=== PATIENT | female | born 1950 | race African-American/Black ===

== ENCOUNTER → 2017-06-22 | Outpatient (CLI) | payer MEDICARE, OTHER ==
[2016-04-03 15:00] VITALS: BP 135/59
[~2017-06-22] MED LIST: ASPI-630 PO; BRIM5DRO2 OU; CHOL100014 PO; FERR325T58 PO; KETO5DRO EACHEYE; LISI1TAB5 PO; MULT-460 PO
--- NOTE | 2017-06-22 14:51 | RAD ---
DATE: 06/22/2017 EXAM: DIGITAL SCREEN BILAT W/CAD HISTORY: Screening study. COMPARISON: 06/20/2016 This study was interpreted with the benefit of Computerized Aided Detection (CAD). The breast parenchyma shows scattered fibroglandular densities. Breast parenchyma level B. FINDINGS: Digital MLO and CC mammograms of both breasts were obtained. Comparison study is dated 06/20/2016. The breast parenchyma is composed of scattered fibroglandular densities which can obscure a lesion on mammography (breast density code B). No spiculated mass is seen. No malignant appearing calcification or area of architectural distortion is noted. Since the previous examination there has been no significant interval change. IMPRESSION: BI-RADS Category 1, negative. There is no mammographic evidence of malignancy. Routine yearly screening mammography is recommended for follow-up. BI-RADS CATEGORY: 1 NEGATIVE RECOMMENDED FOLLOW-UP: 12M 12 MONTH FOLLOW-UP PQRS compliance statement: Patient information was entered into a reminder system with a target due date 06/22/2018 for the next mammogram. Mammography is a sensitive method for finding small breast cancers, but it does not detect them all and is not a substitute for careful clinical examination. A negative mammogram does not negate a clinically suspicious finding and should not result in delay in biopsying a clinically suspicious abnormality. "Our facility is accredited by the [employer] Mammography [employer]."
== END | disposition home or self-care (01) ==
LOC: MAMMO 10:04
PROVIDERS: ATTEND Family Medicine
DX: Z12.31 Encounter for screening mammogram for malignant neoplasm of breast (principal)
CPT/HCPCS: G0202; 77067

== ENCOUNTER → 2018-06-23 | Outpatient (CLI) | payer MEDICARE ==
[2016-04-03 15:00] VITALS: BP 135/59
--- NOTE | 2018-06-23 10:10 | RAD ---
DATE: 06/23/2018 EXAM: MAMMO SALMA SCREENING BILATERAL HISTORY: Routine screening COMPARISON: 06/22/2017 This study was interpreted with the benefit of Computerized Aided Detection (CAD). The breast parenchyma shows scattered fibroglandular densities. Breast parenchyma level B. FINDINGS: 2-D and 3-D tomosynthesis imaging was performed in CC and MLO projections. No new or enlarging breast densities are seen. No suspicious microcalcifications are evident. IMPRESSION: Stable mammograms without evidence of malignancy. BI-RADS CATEGORY: 1 NEGATIVE RECOMMENDED FOLLOW-UP: 12M 12 MONTH FOLLOW-UP PQRS compliance statement: Patient information was entered into a reminder system with a target due date for the next mammogram. Mammography is a sensitive method for finding small breast cancers, but it does not detect them all and is not a substitute for careful clinical examination. A negative mammogram does not negate a clinically suspicious finding and should not result in delay in biopsying a clinically suspicious abnormality. "Our facility is accredited by the [employer] Mammography [employer]."
== END | disposition home or self-care (01) ==
LOC: MAMMO 07:53
PROVIDERS: ATTEND Family Medicine
DX: Z12.31 Encounter for screening mammogram for malignant neoplasm of breast (principal); I10 Essential (primary) hypertension; M17.12 Unilateral primary osteoarthritis, left knee
CPT/HCPCS: 77063; 77067

== ENCOUNTER → 2019-06-07 | Outpatient (CLI) | payer MEDICARE ==
[2018-10-06 10:46] VITALS: BP 138/72
--- NOTE | 2019-06-07 14:53 | RAD ---
Left Knee: 06/07/2019 12:00 AM. Reason for study: Pain in the left knee. Comparison: Left knee radiograph January 15, 2016 Technique: 3 views of the left knee are obtained. Findings: There are findings consistent with recent left total knee arthroplasty, with hardware in good alignment and position. No complications are evident. No lucency is identified surrounding the hardware. No acute fracture or dislocation. There may be a small knee joint effusion. Impression: Left total knee arthroplasty without evidence for hardware failure. Small knee joint effusion. Electronically signed by: Ruth Wadsworth MD (06/07/2019 2:50 PM) [id number]
== END | disposition home or self-care (01) ==
LOC: RAD 08:44
PROVIDERS: ATTEND Physician Assistant
DX: M25.462 Effusion, left knee (principal); M54.16 Radiculopathy, lumbar region; Z96.652 Presence of left artificial knee joint
CPT/HCPCS: 73562

== ENCOUNTER → 2019-06-30 | Outpatient (CLI) | payer MEDICARE ==
[2018-10-06 10:46] VITALS: BP 138/72
[~2019-06-30] MED LIST changes: +LISI1TAB19 PO; -LISI1TAB5 PO
--- NOTE | 2019-06-30 17:53 | RAD ---
EXAM: CT left knee without contrast DATE: 06/30/2019 11:30 AM COMPARISON: No prior INDICATION: TECHNIQUE: CT of the left knee was performed without IV contrast. 2-D reformatted sagittal and coronal images were created at the CT console workstation. PQRS compliance statement - One or more of the following individualized dose reduction techniques were utilized for this study: 1. Automated exposure control 2. Adjustment of the mA and/or kV according to patient size 3. Use of iterative reconstruction technique FINDINGS: Changes of left total knee arthroplasty are seen. This results in extensive streak artifact despite metal reduction techniques, significant streak artifact limits evaluation. No evidence for acute fracture. Trace lucency is seen at the bone-cement interface at the medial tibial plateau measuring up to 1 mm, likely physiologic. Evaluation for lucency about the femoral component is limited given extensive artifact. The patellar component is well-seated. Moderate left knee joint effusion with synovial thickening, synovitis. Essentially neutral patellar tracking. A 3 mm calcification (series 11 image 16) anterior to the medial femoral tibial polyethylene component may represent joint body or focal heterotopic ossification of Hoffa's fat pad. In addition there is a 9 mm ossification (series 11 image 20) just inferior to the patellar button which may represent a prominent osteophyte or joint body. Mild soft tissue swelling is seen about the left knee. IMPRESSION: 1. Left total knee arthroplasty results in extensive streak artifact limiting evaluation. 2. 3 mm calcification is seen anterior to the medial femorotibial polyethylene component within or abutting the Hoffa's fat pad, possibly joint body or heterotopic ossification of Hoffa's fat pad. 3. A 9 mm calcification at the inferior margin of the patellar button may represent a joint body or prominent osteophyte arising from the inferior patella. 4. Left knee joint effusion with synovitis. Electronically signed by: Raymond Monge MD (06/30/2019 5:50 PM) [facility]
== END | disposition home or self-care (01) ==
LOC: CT 11:03
PROVIDERS: ATTEND Physician Assistant
DX: M25.462 Effusion, left knee (principal); M65.9 Synovitis and tenosynovitis, unspecified
CPT/HCPCS: 73700

== ENCOUNTER → 2019-06-30 | Outpatient (CLI) | payer MEDICARE ==
[2018-10-06 10:46] VITALS: BP 138/72
--- NOTE | 2019-07-01 14:11 | RAD ---
DATE: 06/30/2019 10:44 AM EXAM: MAMMO SALMA SCREENING BILATERAL HISTORY: routine screening evaluation. COMPARISON: 06/23/2018, 06/22/2017 Bilateral CC and MLO views of the breasts were performed. Bilateral breast tomosynthesis was performed in CC and MLO projections. This study was interpreted with the benefit of Computerized Aided Detection (CAD). FINDINGS: Breast Density: SCATTERED The breast parenchyma shows scattered fibroglandular densities. Breast parenchyma level B The parenchymal pattern appears stable. No suspicious masses, microcalcifications or architectural distortion is present to suggest malignancy in either breast. The visualized axillae are unremarkable. IMPRESSION: No mammographic evidence of malignancy. BI-RADS CATEGORY: 2 BENIGN FINDING(S) RECOMMENDED FOLLOW-UP: 12M 12 MONTH FOLLOW-UP Annual screening mammography is recommended, unless clinically indicated sooner based on symptoms or change in physical exam. PQRS compliance statement: Patient information was entered into a reminder system with a target due date for the next mammogram. Mammography is a sensitive method for finding small breast cancers, but it does not detect them all and is not a substitute for careful clinical examination. A negative mammogram does not negate a clinically suspicious finding and should not result in delay in biopsying a clinically suspicious abnormality. "Our facility is accredited by the [employer] Mammography [employer]."
== END | disposition home or self-care (01) ==
LOC: MAMMO 10:31
PROVIDERS: ATTEND Family Medicine
DX: Z12.31 Encounter for screening mammogram for malignant neoplasm of breast (principal); N64.89 Other specified disorders of breast
CPT/HCPCS: 77063; 77067

== ENCOUNTER → 2019-07-19 | Outpatient (CLI) | payer MEDICARE, OTHER ==
[2018-10-06 10:46] VITALS: BP 138/72
== END | disposition home or self-care (01) ==
LOC: LAB 14:45
PROVIDERS: ATTEND Orthopaedic Surgery Sports Medicine
DX: T84.84XA Pain due to internal orthopedic prosthetic devices, implants and grafts, initial encounter (principal); Z96.652 Presence of left artificial knee joint; I10 Essential (primary) hypertension
CPT/HCPCS: 36415; 85651; 86141

== ENCOUNTER → 2020-07-03 | Outpatient (CLI) | payer MEDICARE, OTHER ==
[2018-10-06 10:46] VITALS: BP 138/72
[~2020-07-03] MED LIST changes: -LISI1TAB19 PO; +LISI1TAB37 PO
--- NOTE | 2020-07-03 12:59 | RAD ---
DATE: 07/03/2020 9:20 AM EXAM: MAMMO SALMA SCREENING BILATERAL HISTORY: Screening COMPARISON: 06/30/2019, 06/23/2018 Bilateral CC and MLO views of the breasts were performed. Bilateral breast tomosynthesis was performed in CC and MLO projections. This study was interpreted with the benefit of Computerized Aided Detection (CAD). FINDINGS: Breast Density: SCATTERED The breast parenchyma shows scattered fibroglandular densities. Breast parenchyma level B No suspicious masses, microcalcifications or architectural distortion is present to suggest malignancy in either breast. The visualized axillae are unremarkable. IMPRESSION: No mammographic evidence of malignancy. BI-RADS CATEGORY: 1 NEGATIVE RECOMMENDED FOLLOW-UP: 12M 12 MONTH FOLLOW-UP Annual screening mammography is recommended, unless clinically indicated sooner based on symptoms or change in physical exam. PQRS compliance statement: Patient information was entered into a reminder system with a target due date for the next mammogram. Mammography is a sensitive method for finding small breast cancers, but it does not detect them all and is not a substitute for careful clinical examination. A negative mammogram does not negate a clinically suspicious finding and should not result in delay in biopsying a clinically suspicious abnormality. "Our facility is accredited by the [employer] Mammography [employer]."
== END | disposition home or self-care (01) ==
LOC: MAMMO 08:56
PROVIDERS: ATTEND Family Medicine
DX: Z12.31 Encounter for screening mammogram for malignant neoplasm of breast (principal)
CPT/HCPCS: 77063; 77067

== ENCOUNTER → 2021-07-04 | Outpatient (CLI) | payer MEDICARE, OTHER ==
[2018-10-06 10:46] VITALS: BP 138/72
--- NOTE | 2021-07-04 17:55 | RAD ---
DATE: 07/04/2021 EXAM: MAMMO SALMA SCREENING BILATERAL HISTORY: Screening COMPARISON: Prior exams dating back to 2014 This study was interpreted with the benefit of Computerized Aided Detection (CAD). Breast Density: SCATTERED The breast parenchyma shows scattered fibroglandular densities. Breast parenchyma level B. FINDINGS: No mass, suspicious calcification, or architectural distortion in either breast. IMPRESSION: No evidence of malignancy. BI-RADS CATEGORY: 1 NEGATIVE RECOMMENDED FOLLOW-UP: 12M 12 MONTH FOLLOW-UP PQRS compliance statement: Patient information was entered into a reminder system with a target due date for the next mammogram. Mammography is a sensitive method for finding small breast cancers, but it does not detect them all and is not a substitute for careful clinical examination. A negative mammogram does not negate a clinically suspicious finding and should not result in delay in biopsying a clinically suspicious abnormality. "Our facility is accredited by the [employer] Mammography [employer]."
== END ==
LOC: MAMMO 07:46
PROVIDERS: ATTEND Family Medicine
DX: Z12.31 Encounter for screening mammogram for malignant neoplasm of breast (principal)
CPT/HCPCS: 77063; 77067